=== PATIENT | female | born 1940 | race Caucasian/White ===

== ENCOUNTER 2021-04-01 13:06 | Emergency (ER) | payer MEDICARE, OTHER ==
[~2021-04-01 13:06] MED LIST: DOXYCYCLINE HY100 MG PO; FEOSOL325 MG PO; LEVOXYL88 MCG PO; MEDROL 4MG DOSEP4 MG PO; NORCO 5-325 TA1 EACH PO; OXYCODONE-ACET1 EAC1 PO; PRILOSEC20 MG PO; PROLIA60 MG/1 ML SC; XARELTO10 MG PO
[2021-04-01 14:58] LABS: BASOPHIL 0.5 % (0-2); EOSINOPHIL 1.5 % (0-7); HCT 38.4 % (37.0-47.0); HGB 12.4 g/dl (12.5-16.0); LYMPHOCYTE 29.9 % (15-48); MCH 30.2 pg (25.0-31.0); MCHC 32.3 g/dL (32.0-36.0); MCV 93.4 fL (78.0-100.0); MONOCYTE 5.8 % (0-12); MPV 11.3 fL (6.0-9.5); NRBC 0; PLT 258 K/uL (150-400); RBC 4.11 M/uL (4.20-5.40); RDW 13.3 % (11.5-14.0); WBC 7.9 K/uL (4.0-10.5)
[2021-04-01 15:15] LABS: BUN/CREAT RATIO (CALC) 14.5 RATIO; CREATININE 0.69 mg/dL (0.51-0.95); POTASSIUM 3.5 mmol/L (3.5-5.1)
[2021-04-01] MEDS ORDERED: FLEXERIL5 MG PO (16:30)
[2021-04-01] MEDS ORDERED: MEDROL 4MG DOSEP4 MG PO (16:30)
[2021-04-01] MEDS ORDERED: PERCOCET 5-3251 EACH PO (16:30)
== END 2021-04-01 16:55 | disposition home or self-care (01) ==
LOC: FER 13:06
PROVIDERS: Internal Medicine
DX: K44.9 Diaphragmatic hernia without obstruction or gangrene (principal); R07.89 Other chest pain; I10 Essential (primary) hypertension; Z88.0 Allergy status to penicillin
CPT/HCPCS: 36415; 71101; 71275; 80048; 84145; 84484; 85025; 93005; J2930; Q9967

== ENCOUNTER → 2021-06-02 | Day surgery (SDC) | payer MEDICARE, OTHER ==
[~2021-06-02] VITALS: Ht 149.9 cm; Wt 70.3 kg
[~2021-06-02] MED LIST changes: +FLEXERIL5 MG PO; +NORVASC5 MG PO; +PERCOCET 5-3251 EACH PO; +SYNTHROID100 MCG PO; +TOPROL XL 25MG25 MG PO
== END | disposition home or self-care (01) ==
LOC: FAS 06:47
DX: K29.50 Unspecified chronic gastritis without bleeding (principal); K31.7 Polyp of stomach and duodenum; K31.9 Disease of stomach and duodenum, unspecified; K44.9 Diaphragmatic hernia without obstruction or gangrene; K21.9 Gastro-esophageal reflux disease without esophagitis; I10 Essential (primary) hypertension; B19.20 Unspecified viral hepatitis C without hepatic coma; E03.9 Hypothyroidism, unspecified; G43.909 Migraine, unspecified, not intractable, without status migrainosus; M06.9 Rheumatoid arthritis, unspecified; G47.30 Sleep apnea, unspecified; E10.9 Type 1 diabetes mellitus without complications; Z88.0 Allergy status to penicillin; Z88.5 Allergy status to narcotic agent; Z79.891 Long term (current) use of opiate analgesic; Z79.899 Other long term (current) drug therapy; Z90.710 Acquired absence of both cervix and uterus; Z80.3 Family history of malignant neoplasm of breast
CPT/HCPCS: J2250; J2704; J7120

== ENCOUNTER 2022-01-24 16:09 | Emergency (ER) | payer MEDICARE, OTHER ==
[~2022-01-24 16:09] MED LIST changes: +FLUOXETINE HCL20 MG PO
[2022-01-24] MEDS ORDERED: NORCO 5-325 TA1 EACH PO (19:52)
[2022-01-24] MEDS ORDERED: ONDANSETRON ODT4 MG PO (19:52)
== END 2022-01-24 20:00 | disposition home or self-care (01) ==
LOC: FER 16:09
DX: S06.0X9A Concussion with loss of consciousness of unspecified duration, initial encounter (principal); S00.11XA Contusion of right eyelid and periocular area, initial encounter; I10 Essential (primary) hypertension; Z88.0 Allergy status to penicillin; W01.198A Fall on same level from slipping, tripping and stumbling with subsequent striking against other object, initial encounter; Y92.009 Unspecified place in unspecified non-institutional (private) residence as the place of occurrence of the external cause
CPT/HCPCS: 70450; 70486; 72125